=== PATIENT | female | born 1990 | race Caucasian/White ===

== ENCOUNTER 2020-04-23 17:24 | Emergency (ER) | payer SELFPAY ==
[2020-04-23 17:35] VITALS: BMI 29.2
[2020-04-23] MEDS ORDERED: levETIRAcetam 500 MG/5 ML INJECTION VIAL IVPB ONE (17:37)
[2020-04-23] MEDS ORDERED: SODIUM CHLORIDE 0.9% 1000 ML INFUS.BAG IV ONE (17:53)
[2020-04-23 17:59] LABS: BASO % 0.5 % (0-2.0); EOS % 1.7 % (0-4.5); HEMATOCRIT 34.8 % (32.4-45.2); HEMOGLOBIN 11.5 GM/dL (10.7-15.3); LYMPH % 41.6 % (8-40); MEAN CELL VOLUME 90.7 fl (80-96); MEAN PLT VOLUME 7.8 fl (7.5-11.1); MONO % 5.8 % (3.8-10.2); NEUT % 50.4 % (42.8-82.8); PLATELET COUNT 421 K/MM3 (134-434); RBC 3.83 M/mm3 (3.60-5.2); RDW 13.7 % (11.6-15.6); WHITE BLOOD COUNT 6.3 K/mm3 (4.0-10.0)
[2020-04-23 18:19] LABS: POTASSIUM 4.2 mmol/L (3.5-5.1)
[2020-04-23 18:21] LABS: CALCIUM 9.4 mg/dL (8.5-10.1)
[2020-04-23 18:22] LABS: ALBUMIN 4.1 g/dl (3.4-5.0); BLOOD UREA NITROGEN 13.3 mg/dL (7-18)
[2020-04-23 18:25] LABS: CREATININE 0.8 mg/dL (0.55-1.3)
[2020-04-23 18:26] LABS: BILIRUBIN,TOTAL 0.2 mg/dL (0.2-1); TOT PROT 8.3 g/dl (6.4-8.2)
[2020-04-23 18:40] VITALS: BP 121/56; PULSE 58; TEMP 97.6
[2020-04-23 20:40] LABS: PH,URINE 6.5 (5.0-8.0); URINE APPEARANCE CLEAR; URINE BILIRUBIN NEGATIVE (NEGATIVE); URINE COLOR YELLOW; URINE GLUCOSE (UA) NEGATIVE (NEGATIVE); URINE KETONE NEGATIVE (NEGATIVE); URINE LEUK ESTERASE NEGATIVE (NEGATIVE); URINE NITRITE NEGATIVE (NEGATIVE); URINE PROTEIN NEGATIVE (NEGATIVE); URINE UROBILINOGEN 0.2 mg/dL (0.2-1.0)
[2020-04-23 21:00] LABS: OPIATES, URI NEGATIVE ng/ml (CUTOFF=300); URINE AMPHETAMINES NEGATIVE ng/ml (CUTOFF=500)
[2020-04-23 21:01] LABS: PHENCYCLIDINE,URINE NEGATIVE ng/ml (CUTOFF=25)
[2020-04-23 21:10] LABS: COCAINE, UR NEGATIVE ng/ml (CUTOFF=300)
[2020-04-23 21:13] LABS: URINE BARBITURATES POSITIVE ng/ml (CUTOFF=200); URINE BENZODIAZEPINES POSITIVE ng/ml (CUTOFF=200)
[2020-04-23 21:14] LABS: METHADONE, UR POSITIVE ng/ml (CUTOFF=300)
== END 2020-04-23 21:00 | disposition left against medical advice (07) ==
LOC: JER 17:24
PROC: 3E033GC Introduction of Other Therapeutic Substance into Peripheral Vein, Percutaneous Approach (ICD-10-PCS; principal; 2020-04-23)
DX: G40.89 Other seizures (principal)
CPT/HCPCS: 36415; 70450-TC; 76856-TC; 80053; 80184; 80307; 81003; 84702; 84703; 85025; 93005; 93010; 99285-25

== ENCOUNTER 2020-08-23 15:24 | Emergency (ER) | payer SELFPAY ==
[2020-08-23 15:37] VITALS: BP 124/74; PULSE 59; TEMP 98.7; BMI 30.9
[2020-08-23] MEDS ORDERED: SODIUM CHLORIDE 0.9% 500 ML INFUS.BAG IV ONE (15:57)
== END 2020-08-23 17:05 | disposition left against medical advice (07) ==
LOC: JER 15:24
DX: G40.89 Other seizures (principal)
CPT/HCPCS: 99283-25; 99285-25

== ENCOUNTER 2020-10-16 10:21 | Emergency (ER) | payer OTHER ==
[2020-10-16 10:27] VITALS: BP 101/66; PULSE 77; TEMP 98.4; BMI 31.7
[2020-10-16 11:47] LABS: EPI CELLS 32 /uL (0-25.1); HCG,QUALITATIVE URINE Positive; HYALINE CASTS 1 /uL (0-3.1); PH,URINE 6.5 (5.0-8.0); URINE APPEARANCE CLEAR; URINE BACTERIA 566 /uL (0-1359); URINE BILIRUBIN NEGATIVE (NEGATIVE); URINE COLOR YELLOW; URINE GLUCOSE (UA) NEGATIVE (NEGATIVE); URINE KETONE NEGATIVE (NEGATIVE); URINE LEUK ESTERASE 1+ (NEGATIVE); URINE NITRITE NEGATIVE (NEGATIVE); URINE PROTEIN NEGATIVE (NEGATIVE); URINE RBC 114 /uL (0-23.9); URINE UROBILINOGEN 0.2 mg/dL (0.2-1.0); URINE WBC 92 /uL (0-25.8)
[2020-10-16 11:51] LABS: CALCIUM 8.4 mg/dL (8.5-10.1)
[2020-10-16 11:52] LABS: ALBUMIN 2.8 g/dl (3.4-5.0); BLOOD UREA NITROGEN 15.6 mg/dL (7-18)
[2020-10-16 11:55] LABS: CREATININE 0.7 mg/dL (0.55-1.3)
[2020-10-16 11:57] LABS: BILIRUBIN,TOTAL 0.3 mg/dL (0.2-1); TOT PROT 6.9 g/dl (6.4-8.2)
[2020-10-16 11:58] LABS: BASO % 0.3 % (0-2.0); EOS % 1.5 % (0-4.5); HEMATOCRIT 25.5 % (32.4-45.2); HEMOGLOBIN 8.5 GM/dL (10.7-15.3); MCH 29.1 pg (25.7-33.7); MCHC 33.2 g/dl (32.0-36.0); MEAN CELL VOLUME 87.7 fl (80-96); MEAN PLT VOLUME 7.4 fl (7.5-11.1); MONO % 4.6 % (3.8-10.2); NEUT % 71.6 % (42.8-82.8); PLATELET COUNT 428 K/MM3 (134-434); RBC 2.91 M/mm3 (3.60-5.2); RDW 16.4 % (11.6-15.6); WHITE BLOOD COUNT 11.8 K/mm3 (4.0-10.0)
[2020-10-16 12:28] LABS: ANISOCYTOSIS 0; MACROCYTOSIS 0; PLATELET ESTIMATE NORMAL
== END 2020-10-16 14:30 | disposition home or self-care (01) ==
LOC: JER 10:21
DX: O03.9 Complete or unspecified spontaneous abortion without complication (principal)
CPT/HCPCS: 36415; 76830-TC; 80053; 81003; 84702; 84703; 85025; 86850; 86900; 86901; 87086; 88300-TC; 99284-25